=== PATIENT | female | born 1970 | race Two or more races ===

== ENCOUNTER 2018-03-12 06:00 | Day surgery (SDC) | payer OTHER ==
[~2018-03-12 06:00] MED LIST: CLONAZEPAM0.5 MG PO; EFFEXOR XR75 MG PO; REMERON15 MG PO; ZANAFLEX2 M1 PO
[2018-03-12] MEDS ORDERED: PERCOCET 5-3251 EACH PO (10:39)
[2018-03-12] MEDS ORDERED: RECTICARE30 GM TOP (10:39)
== END 2018-03-12 18:00 | disposition home or self-care (01) ==
LOC: CIR.AMB 06:00
DX: K64.8 Other hemorrhoids (principal)

== ENCOUNTER 2018-03-16 09:50 | Emergency (ER) | payer OTHER ==
[~2018-03-16] VITALS: Ht 165.1 cm; Wt 77.1 kg
[~2018-03-16 09:50] MED LIST changes: +PERCOCET 5-3251 EACH PO; +RECTICARE30 GM TOP
== END 2018-03-16 12:12 | disposition home or self-care (01) ==
LOC: ER 09:50
DX: N89.8 Other specified noninflammatory disorders of vagina (principal)